=== PATIENT | female | born 1955 | race African-American/Black ===

== ENCOUNTER → 2016-10-27 | Outpatient (CLI) | payer BC ==
--- NOTE | 2016-10-27 14:56 | DIAGNOSTIC IMAGING REPORT ---
LEFT KNEE 1 OR 2 VIEWS ROUTINE CLINICAL HISTORY: L KNEE PAIN COMPARISON: None. DISCUSSION: No acute fractures are visualized. There is a linear calcific density located superior to the medial tibial spine. This is felt to be chronic. There are moderate arthritic changes present. No destructive lesions are evident. IMPRESSION: Mild degenerative change. No acute fractures are visualized. Electronically signed by: Werner Jones M.D. 10/27/2016 2:55 PM Dictated Date/Time: 10/27/2016 2:54 PM
== END | disposition home or self-care (01) ==
LOC: C.RAD1850 14:30
PROVIDERS: ATTEND Family Medicine
DX: M25.562 Pain in left knee (principal)

== ENCOUNTER → 2017-05-01 | Outpatient (CLI) | payer BC ==
--- NOTE | 2017-05-01 14:45 | MAMMOGRAPHY REPORT ---
BILATERAL DIGITAL SCREENING MAMMOGRAM TOMOSYNTHESIS WITH CAD: 05/01/2017 CLINICAL HISTORY: Routine screening. Patient has no complaints. TECHNIQUE: Breast tomosynthesis in addition to standard 2D mammography was performed. Current study was also evaluated with a Computer Aided Detection (CAD) system. COMPARISON: Comparison is made to exams dated: 04/28/2016 mammogram, 04/27/2015 mammogram, 4 mammogram, 04/23/2013 mammogram, 11/10/2009 mammogram, and 04/18/2012 mammogram - [facility]. BREAST COMPOSITION: There are scattered areas of fibroglandular density in both breasts. FINDINGS: No suspicious masses, calcifications, or areas of architectural distortion are noted in ei ther breast. There has been no significant interval change compared to prior exams. IMPRESSION: ACR BI-RADS CATEGORY 1: NEGATIVE There is no mammographic evidence of malignancy. A 1 year screening mammogram is recommended. The pa tient will receive written notification of the results. Approximately 10% of breast cancers are not detected with mammography. A negative mammographic report should not delay biopsy if a clinically suggestive mass is present. Liyah Thompson M.D. ah/:05/01/2017 12:53:31 Ophthalmic Dispenser: Tammie KIRBY(Rolf)(Doris), [facility] letter sent: Normal 1/2 BI-RADS Code: ACR BI-RADS Category 1: Negative
== END | disposition home or self-care (01) ==
LOC: C.MAMM 11:04
PROVIDERS: ATTEND Obstetrics & Gynecology
DX: Z12.31 Encounter for screening mammogram for malignant neoplasm of breast (principal)

== ENCOUNTER → 2017-09-26 | Outpatient (CLI) | payer OTHER | END | disposition home or self-care (01) | LOC: C.LABSPEC 13:28 → C.PAPS 13:30 | PROVIDERS: ATTEND Obstetrics & Gynecology | DX: Z12.4 Encounter for screening for malignant neoplasm of cervix (principal) ==

== ENCOUNTER 2024-07-16 16:41 | Inpatient (IN) ==
--- NOTE | 2024-07-16 17:21 | Emergency Department Note ---
Impression & Plan Influenza A, Hypoxia ED Provider Note Provider: Bryan Wilkins MD CHIEF COMPLAINT: Cough, shortness of breath HISTORY OF PRESENT ILLNESS: Patient is a 69-year-old female past medical history of significant asthma, sleep apnea, obesity presenting here today with ongoing cough and breathing issues. States over the last 3 weeks she has had a decent cough. Seen by her primary doctor and given some Tessalon Perles. Has been using her rescue inhaler prickly last several days 4-5 times a day with some improvement with this. has been somewhat ill but no other travel or sick contacts reported. No fevers or chills. Does endorse over the last approximately 4 days having myalgias and some increased weakness. Clear phlegm production a little bit of soreness in the chest with coughing and the other day after coughing felt a little bit dizzy but did not syncopized or fall. Denies significant sinus congestion or significant sore throat. No significant nausea vomiting or diarrhea reported. No significant abdominal pain. Maybe a little bit of chest soreness with coughing. Given the increasing symptoms and shortness of breath today came here for evaluation. PAST MEDICAL HISTORY: As noted above MEDICATIONS: Reviewed home medications SOCIAL HISTORY: Non-smoker PHYSICAL EXAM: GENERAL: alert and oriented in no acute distress on stretcher, nasal cannula in place Head: normocephalic and atraumatic EYES: No injection, discharge or icterus. NECK: Trachea midline. Supple. ENT: Mucous membranes pink and moist. LUNGS: Airway patent. No retractions. Breath sounds diminished with faint expiratory wheeze HEART: Regular rate and rhythm. No chest wall tenderness ABDOMEN: Soft and non-tender, without guarding or rebound. SKIN: Acyanotic, warm, dry, without rashes EXTREMITIES: Without swelling, tenderness or deformity NEUROLOGICAL: No focal deficits. No aphasia. No facial droop or slurred speech. EK beats per min. Normal sinus rhythm. No PVC or PAC. No acute ST segment elevation or depression with a QTc of 454. CONTINUOUS CARDIAC MONITORING: was ordered and showed a heart rate of 50s to 70s bpm in sinus bradycardia normal sinus rhythm Patient's laboratory studies and imaging reviewed. Differential includes Reactive airway disease, pneumonia, pneumothorax, COPD, CHF, infections, cardiac ischemia, pulmonary embolism, musculoskeletal, gastrointestinal, as well as other pathologies. IMPRESSION/MEDICAL DECISION MAKING: Found in triage to be hypoxic in the 80s on room air. No history of oxygen usage or smoking. COVID flu RSV testing sent. X-ray ordered and basic blood work. EKG and troponin sent given a bit of chest discomfort seems like musculoskeletal from the coughing. Lower suspicion for ACS and no STEMI noted. Given DuoNeb and some IV steroids here. No significant risk factors or travel recently and doubt she is suffering from VTE. Doubt dissection or CHF at this time. Question possible development of pneumonia versus asthma exacerbation. Blood work here without significant leuko-cytosis actually is mildly leukopenia. No anemia. No significant electrolyte abnormality signs of renal dysfunction. No transaminitis. Normal troponin. Negative COVID and RSV. Patient positive for influenza likely explaining her symptoms. Will complete a CTA of the chest given her hypoxia and x-ray questioning only some mild pulmonary congestion versus right lower lobe atelectasis to exclude underlying formal pneumonia. CTA without evidence of pneumonia or PE. Discussed with patient and . Given her hypoxia will bring in for further care and the hospitalist team was collectively. DIAGNOSIS: Hypoxia, cough, influenza A DISPOSITION: Hospitalist will evaluate Patient was agreeable with this plan. Past Med/Surg History Problem List (Updated 07/17/24 @ 00:17 by Bryan Wilkins M.D.) Hypoxia (Acute) Influenza A (Acute) Mixed incontinence Obesity Nocturnal hypoxemia Severe obstructive sleep apnea Recurrent pneumonia Chronic rhinitis Eosinophilic asthma Allergic asthma Moderate persistent asthma Elevated IgE level Bronchitis Chest heaviness Dyspnea on exertion Encounter for annual routine gynecological examination Medical History Fibroids Endometriosis Surgical History S/P colonoscopy Status post ectopic H/O breast biopsy Family History Denies family history of Ovarian cancer Prostate cancer Myocardial infarction Breast cancer Colorectal cancer Social History Smoking Status: Never smoker Preferred Language: Khmer Feels Safe at Home: Yes Allergies Allergies Allergy/AdvReac Type Severity Reaction Status Date / Time cefazolin Allergy Hives Verified 04/04/24 10:53 Fish Containing Products Allergy "seafood Verified 07/16/24 22:50 allergy" shellfish derived Allergy "seafood Verified 07/16/24 22:50 allergy" Home Meds Home Medications Medication Instructions Recorded Confirmed lansoprazole 30 mg capsule,delayed 30 mg PO DAILY 06/21/22 07/16/24 release (Prevacid) fluoxetine 10 mg capsule 10 mg PO DAILY 11/08/22 07/16/24 loratadine 10 mg tablet (Claritin) 10 mg PO DAILY PRN Allergic 11/08/22 07/16/24 Symptoms amlodipine 10 mg PO HS 12/21/22 07/16/24 Previous Rx's Medication Instructions Recorded albuterol sulfate 90 mcg/actuation 2 puff inhalation Q4H PRN 02/28/24 aerosol inhaler (Ventolin HFA) shortness of breath or wheezing #8.5 grams azelastine 137 mcg (0.1 %) nasal 2 spray intranasal BID PRN nasal 02/28/24 spray congestion #30 mL mometasone 50 mcg/actuation nasal 2 spray intranasal DAILY #17 grams 02/28/24 spray budesonide-formoterol HFA 160 2 puff inhalation BID #10.2 grams 03/05/24 mcg-4.5 mcg/actuation aerosol inhaler (Symbicort) Results & Data (ED) Vital Signs Vital Signs - 24 hr 07/16/24 17:06 07/16/24 17:07 07/16/24 17:29 Temperature 36.6 C Temperature Source Temporal Artery Scan Pulse Rate 63 Pulse Rate [Apical] Respiratory Rate 18 Respiratory Effort / Characteristics Non-Labored Spontaneous Respiratory Depth Normal Respiratory Pattern Blood Pressure 128/71 Blood Pressure [Right Arm] Blood Pressure Mean 90 Blood Pressure Mean [Right Arm] Pulse Oximetry 83 L 90 86 L Oxygen Delivery Method Room Air Nasal Cannula Nasal Cannula Oxygen Flow Rate 5 0 Sepsis Recent Fever Within 48 Hours No Sepsis New/Unexplained Change in Mental Status N/A Sepsis Action Taken by Nursing No Action Required Oxygen Flow Rate - Titration 4 Pulse Oximetry Post Tiitration 96 07/16/24 17:34 07/16/24 18:00 07/16/24 18:24 Temperature Temperature Source Pulse Rate 60 Pulse Rate [Apical] 66 57 L Respiratory Rate 20 18 Respiratory Effort / Characteristics Non-Labored Spontaneous Non-Labored Spontaneous Respiratory Depth Normal Respiratory Pattern Regular Blood Pressure Blood Pressure [Right Arm] 153/74 H Blood Pressure Mean Blood Pressure Mean [Right Arm] 100 Pulse Oximetry 100 98 Oxygen Delivery Method Nebulizer Nasal Cannula Oxygen Flow Rate 3 Sepsis Recent Fever Within 48 Hours Sepsis New/Unexplained Change in Mental Status Sepsis Action Taken by Nursing Oxygen Flow Rate - Titration Pulse Oximetry Post Tiitration 07/16/24 20:00 Temperature Temperature Source Pulse Rate Pulse Rate [Apical] 74 Respiratory Rate 20 Respiratory Effort / Characteristics Non-Labored Spontaneous Respiratory Depth Normal Respiratory Pattern Regular Blood Pressure Blood Pressure [Right Arm] 158/68 H Blood Pressure Mean Blood Pressure Mean [Right Arm] 98 Pulse Oximetry 94 Oxygen Delivery Method Nasal Cannula Oxygen Flow Rate 3 Sepsis Recent Fever Within 48 Hours Sepsis New/Unexplained Change in Mental Status Sepsis Action Taken by Nursing Oxygen Flow Rate - Titration Pulse Oximetry Post Tiitration Laboratory Data 07/16/24 17:33 07/16/24 17:33 Lab Results 07/16/24 07/16/24 07/16/24 Range/Units 17:00 17:33 17:39 WBC 3.42 L (4.8-10.8) K/ul RBC 4.50 (4.20-5.40) M/uL Hgb 12.9 (12.0-16.0) g/dl POC Hgb 13.6 (12.0-16.0) g/dl Hct 39.8 (37.0-47.0) % POC Hct 40 (37-47) % MCV 88.4 (80.0-100.0) fL MCH 28.7 (25.0-34.0) pg MCHC 32.4 (32.0-36.0) g/dL RDW Std Deviation 44.4 (36.4-46.3) fL RDW Coeff of Isaias 13.7 (11.5-14.5) % Plt Count 165 (130-400) K/uL MPV 10.7 (9.4-12.4) fL Immature Gran % (Auto) 0.6 % Neut % (Auto) 56.7 % Lymph % (Auto) 27.8 % [place] % (Auto) 9.9 % Eos % (Auto) 4.7 % Baso % (Auto) 0.3 % Neut # (Auto) 1.94 (1.40-6.50) K/uL Lymph # (Auto) 0.95 L (1.20-3.40) K/uL [place] # (Auto) 0.34 (0.11-0.59) K/uL Eos # (Auto) 0.16 (0.00-0.50) K/uL Baso # (Auto) 0.01 (0.00-0.20) K/uL Immature Gran # (Auto) 0.02 (0.01-0.20) K/uL PT 10.9 (9.0-12.0) Seconds INR 1.0 (0.9-1.1) APTT 28 (21-31) Seconds PTT Ratio 1.0 POC Sodium 140 (135-144) mmol/L Sodium 140 (136-145) mmol/L POC Potassium 3.7 (3.3-5.0) mmol/L Potassium 3.7 (3.5-5.1) mmol/L POC Chloride 99 L (101-112) mmol/L Chloride 101 (98-107) mmol/L Carbon Dioxide 33 H (21-32) mmol/L POC Total CO2 29 (24-31) mmol/L Anion Gap 6 (3-11) POC Anion Gap 16.0 (16-25) mmol/L POC BUN 11 (7-18) mg/dl BUN 12 (6-23) mg/dl Creatinine 0.92 (0.6-1.2) mg/dl POC Creatinine 1.0 (0.6-1.3) mg/dl Est Cr Clr Drug Dosing 64.4 ml/min eGFR 67.82 BUN/Creatinine Ratio 13.0 (10-20) Glucose 91 (70-99(Fasting)) mg/dl POC Glucose (other) 94 (70-99) mg/dl Calcium 9.1 (8.6-10.3) mg/dl POC Ioniz Calcium Hilario 1.18 (1.12-1.32) mmol/l Total Bilirubin 0.3 (0.2-1.0) mg/dl AST 20 (13-39) U/L ALT 15 (7-52) U/L Alkaline Phosphatase 85 (34-104) U/L Troponin I High Sens 13.0 (0-14) pg/ml Total Protein 7.6 (6.0-8.3) gm/dl Albumin 4.3 (3.4-5.0) gm/dl Globulin 3.3 (2.5-4.0) gm/dl Albumin/Globulin Ratio 1.3 (0.9-2) SARS-CoV-2 (PCR) NEGATIVE (Negative) Influenza Type A (PCR) Positive A (Neg) Influenza Type B (PCR) Negative (Neg) RSV (RT-PCR) Negative (Neg) Administered Medications Discontinued Medications Albuterol (Albut/Ipratrop 3mg/0.5mg Neb 3 Ml Vial) 12 ml NEB ONE ONE; Protocol Stop: 07/16/24 17:29 Last Admin: 07/16/24 18:20 Dose: 12 ml Documented By: CAMILO Ioversol (Optiray 320 125ml) 64 ml IV ONCE ONE Stop: 07/16/24 19:22 Last Admin: 07/16/24 19:23 Dose: 64 ml Documented By: SADIQ Methylprednisolone (Methylprednisolone 125 Mg/2 Ml Vial) 60 mg IV NOW STA Stop: 07/16/24 17:29 Last Admin: 07/16/24 18:38 Dose: 60 mg Documented By: SHAKILA Oseltamivir Phosphate (Oseltamivir Phosphate 75 Mg Cap) 75 mg PO NOW STA; Protocol Stop: 07/16/24 19:30 Last Admin: 07/16/24 19:40 Dose: 75 mg Documented By: SHAKILA Imaging Data Radiologist's Impression: Chest X-Ray 07/16/24 17:11 INDICATION: Chest pain. TECHNIQUE: Frontal radiograph of the chest. COMPARISON: Radiograph from 11/18/2022. FINDINGS: Cardiomegaly. Mild pulmonary vascular congestion. Subsegmental atelectasis/airspace disease in the right lower lobe. No pleural effusion or pneumothorax. No acute osseous abnormality evident. IMPRESSION: Mild pulmonary vascular congestion. Subsegmental atelectasis/airspace disease in the right lower lobe. Electronically signed by Branden Hightower 07-16-2024 5:51 PM Chest CTA 07/16/24 17:59 CT pulmonary angiogram with IV contrast History: Cough. Hypoxia COMPARISON: November 21, 2022 TECHNIQUE: CT angiography of the chest was performed without IV contrast followed by IV contrast, including 3D post processing CTA image reconstruction. Dose reduction techniques were achieved by using automatic exposure control and/or adjustment of mA and/or kV according to patient size and/or use of iterative reconstruction technique. FINDINGS: Diagnostic quality: Adequate There is no evidence for pulmonary embolism. The heart is not enlarged. There is no pericardial effusion. There are no abnormally enlarged hilar or mediastinal lymph nodes. Moderate bronchial thickening and scattered endobronchial mucous plugging throughout the lower lobes, as well as the lingula. Mild, streaky, postobstructive atelectasis at the periphery of the lung bases and lingula. No consolidation. There is no pleural effusion. Limited visualized upper abdomen. No destructive osseous changes are seen. IMPRESSION: No evidence for pulmonary embolism. Findings of bronchitis in the lung bases and lingula, as above. Electronically signed by Alessandro Delarosa 07-16-2024 7:45 PM Discharge Plan Visit Data Chief Complaint: Cough Stated Complaint: COUGH, SOB, WHEEZING, ED Provider: Bryan Wilkins Discharge Problem: Influenza A, Hypoxia Patient Disposition: Admitted As Inpatient Discharge Instructions Interventions: ED Discharge Assessment Last Done: 07/16/24 22:45
[2024-07-16 17:52] LABS: iSTAT Hemoglobin 13.6 g/dl (12.0-16.0); iSTAT Ionized Calcium 1.18 mmol/l (1.12-1.32); iSTAT Potassium 3.7 mmol/L (3.3-5.0)
--- NOTE | 2024-07-16 17:52 | XRay Report ---
INDICATION: Chest pain. TECHNIQUE: Frontal radiograph of the chest. COMPARISON: Radiograph from 11/18/2022. FINDINGS: Cardiomegaly. Mild pulmonary vascular congestion. Subsegmental atelectasis/airspace disease in the right lower lobe. No pleural effusion or pneumothorax. No acute osseous abnormality evident. IMPRESSION: Mild pulmonary vascular congestion. Subsegmental atelectasis/airspace disease in the right lower lobe. Electronically signed by Branden Hightower 07-16-2024 5:51 PM
[2024-07-16 17:59] LABS: Basophils # (auto) 0.01 K/uL (0.00-0.20); Basophils % (auto) 0.3 %; Eosinophils # (auto) 0.16 K/uL (0.00-0.50); Eosinophils % (auto) 4.7 %; Hematocrit (blood only) 39.8 % (37.0-47.0); Hemoglobin 12.9 g/dl (12.0-16.0); Immature Granulocytes # (auto) 0.02 K/uL (0.01-0.20); Immature Granulocytes % (auto) 0.6 %; Lymphocytes # (auto) 0.95 K/uL (1.20-3.40); Lymphocytes % (auto) 27.8 %; Mean Corpuscular Hemoglobin 28.7 pg (25.0-34.0); Mean Corpuscular Hgb Conc 32.4 g/dL (32.0-36.0); Mean Corpuscular Volume 88.4 fL (80.0-100.0); Mean Platelet Volume 10.7 fL (9.4-12.4); Monocytes # (auto) 0.34 K/uL (0.11-0.59); Monocytes % (auto) 9.9 %; Neutrophils # (auto) 1.94 K/uL (1.40-6.50); Neutrophils % (auto) 56.7 %; Platelet Count 165 K/uL (130-400); RDW Coefficient of Variation 13.7 % (11.5-14.5); RDW Standard Deviation 44.4 fL (36.4-46.3); White Blood Count 3.42 K/ul (4.8-10.8)
[2024-07-16 18:00] LABS: Influenza A virus by PCR Positive (Neg); Influenza B virus by PCR Negative (Neg); RSV by PCR Negative (Neg); SARS CoV2 RNA(COVID-19) Ceph NEGATIVE (Negative)
[2024-07-16 18:10] LABS: Albumin Globulin Ratio 1.3 (0.9-2); Albumin Level 4.3 gm/dl (3.4-5.0); Bilirubin,Total 0.3 mg/dl (0.2-1.0); Calcium 9.1 mg/dl (8.6-10.3); Creatinine Clr Calc Pharmacy 64.4 ml/min; Globulin 3.3 gm/dl (2.5-4.0); Potassium 3.7 mmol/L (3.5-5.1); Total Protein 7.6 gm/dl (6.0-8.3)
[2024-07-16] MEDS: ALBUT/IPRATROP 3MG/0.5MG NEB 3 ML VIAL NEB ONE (18:20)
[2024-07-16 18:21] LABS: Partial Thromboplastin Time 28 Seconds (21-31); Prothrombin Time 10.9 Seconds (9.0-12.0)
[2024-07-16] MEDS: methylPREDNISolone 125 MG/2 ML VIAL IV STA (18:38)
[2024-07-16] MEDS: OPTIRAY 320 125ml IV ONE (19:23)
[2024-07-16] MEDS: OSELTAMIVIR PHOSPHATE 75 MG CAP PO STA (19:40)
--- NOTE | 2024-07-16 19:46 | CT Scan Report ---
CT pulmonary angiogram with IV contrast History: Cough. Hypoxia COMPARISON: November 21, 2022 TECHNIQUE: CT angiography of the chest was performed without IV contrast followed by IV contrast, including 3D post processing CTA image reconstruction. Dose reduction techniques were achieved by using automatic exposure control and/or adjustment of mA and/or kV according to patient size and/or use of iterative reconstruction technique. FINDINGS: Diagnostic quality: Adequate There is no evidence for pulmonary embolism. The heart is not enlarged. There is no pericardial effusion. There are no abnormally enlarged hilar or mediastinal lymph nodes. Moderate bronchial thickening and scattered endobronchial mucous plugging throughout the lower lobes, as well as the lingula. Mild, streaky, postobstructive atelectasis at the periphery of the lung bases and lingula. No consolidation. There is no pleural effusion. Limited visualized upper abdomen. No destructive osseous changes are seen. IMPRESSION: No evidence for pulmonary embolism. Findings of bronchitis in the lung bases and lingula, as above. Electronically signed by Alessandro Delarosa 07-16-2024 7:45 PM
--- NOTE | 2024-07-16 19:48 | History & Physical Report ---
Date of Service July 16, 2024 Assessment & Plan (1) Moderate persistent asthma: (2) Dyspnea on exertion: (3) Influenza A: Plan Patient is a 69-year-old with PMH notable for asthma, EMILY, obesity who is here with 3 weeks of cough + 4 days of acute worsening. She received abx from her PCP, and reports some improvement. She has been requiring use of her rescue inhaler 4-5x per day whereas she normally never needs it. The past 4 days involved worsening cough, myalgias, headaches, and chest pain a/w cough; no fevers, chills, GI distress. 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 Patient is being admitted for management of asthma exacerbation in the setting of flu infection. #Asthma/Flu - 3 weeks of cough, completed Z-pac given by primary doctor w some improvement. 4 days of acute worsening with additional flu-like sx. O2 desat noted at home. [facility] +ve for influenza A. On arrival, required O2 supplementation via 5L NC; now down to 2L. Has remained afebrile. Labs unremarkable w no leukocytosis. CXR with mild vascular congestion, subsegmental atelectasis/airspace disease in RLL. Chest CTA with no evidence of PE. - s/p 60mg solu-medrol, 1 albuterol neb, 1 dose tamiflu - Continue O2 supplementation, wean as tolerated to maintain SpO2 > 88% - Continue home Symbicort - Mucinex for congestion - Duonebs q4h, prn albuterol q4h - Solu-medrol 40mg TID Chronic, stable conditions: home medications continued Diet: regular Code: Full Dispo: admit to med/surg History of Present Illness Chief Complaint: Flu A Primary Care Provider: Mehul Ceron MD Patient with h/o asthma has had a cough for ~3 weeks with recent worsening. Reports that she did see her primary doctor within that time and was given a Z- pac and Tessalon Perles. She feels that only the former helped. She had no recent travel. Her only sick contact would be her , who had a mild cough since early May. For the past approx 4 days (since ), she noticed the cough was "deeper." Minimal sputum produced, always clear. She started needing her rescue inhaler 4- 5 times a day vs typically never using it. She also started to have myalgias, g eneralized weakness, ROUSE, dizziness w/o syncope or fall, and mild chest pain/soreness with excessive coughing. No fevers, chills, rhinorrhea, sinus congestion, ear pain, sore throat. No significant abd pain, nausea, vomiting, or diarrhea reported. In the ED, she was given albuterol, 60mg solu-medrol, and 1 dose of tamiflu. She was requiring supplemental O2, down to 2L by admission. Allergies Allergy/AdvReac Type Severity Reaction Status Date / Time cefazolin Allergy Hives Verified 04/04/24 10:53 Fish Containing Products Allergy "seafood Verified 07/16/24 22:50 allergy" shellfish derived Allergy "seafood Verified 07/16/24 22:50 allergy" Home Medications Medication Instructions Recorded Confirmed Type lansoprazole 30 mg capsule,delayed 30 mg PO DAILY 06/21/22 07/16/24 History release (Prevacid) fluoxetine 10 mg capsule 10 mg PO DAILY 11/08/22 07/16/24 History loratadine 10 mg tablet (Claritin) 10 mg PO DAILY PRN Allergic 11/08/22 07/16/24 History Symptoms amlodipine 10 mg PO HS 12/21/22 07/16/24 History albuterol sulfate 90 mcg/actuation 2 puff inhalation Q4H PRN 02/28/24 07/16/24 Rx aerosol inhaler (Ventolin HFA) shortness of breath or wheezing #8.5 grams azelastine 137 mcg (0.1 %) nasal 2 spray intranasal BID PRN nasal 02/28/24 07/16/24 Rx spray congestion #30 mL mometasone 50 mcg/actuation nasal 2 spray intranasal DAILY #17 grams 02/28/24 07/16/24 Rx spray budesonide-formoterol HFA 160 2 puff inhalation BID #10.2 grams 03/05/24 07/16/24 Rx mcg-4.5 mcg/actuation aerosol inhaler (Symbicort) Past Med/Surg History Problem List (Updated 07/16/24 @ 21:19 by Louis Ross MD) Influenza A Mixed incontinence Obesity Nocturnal hypoxemia Severe obstructive sleep apnea Recurrent pneumonia Chronic rhinitis Eosinophilic asthma Allergic asthma Moderate persistent asthma Elevated IgE level Bronchitis Chest heaviness Dyspnea on exertion Encounter for annual routine gynecological examination Medical History Fibroids Endometriosis Surgical History S/P colonoscopy Status post ectopic H/O breast biopsy Family History (Reviewed 04/04/24 @ 11: by Sinan Wray MD) Denies family history of Ovarian cancer Prostate cancer Myocardial infarction Breast cancer Colorectal cancer Social History Smoking Status: Never smoker Preferred Language: Luxembourger Feels Safe at Home: Yes Review of Systems Constitutional: + body aches; no fever, no chills and no sweats Eyes: no eye pain Ear, Nose, Mouth, Throat: + dizziness; no ear pain, no nasal disch arge, no facial pain, no sinus pain/pressure and no sore throat Respiratory: + cough; no hemoptysis and no wheezing Cardiovascular: + dyspnea on exertion and + lightheadedn ess; no syncope Gastrointestinal: no abdominal pain, no nausea, no vomiting, no change in stools and no diarrhea/loose stools Genitourinary: no dysuria and no urinary frequency Neurologic: + dizziness and + headache(s) Physical Exam Physical Exam: Gen: NAD, WD/WN, conversing comfortably HEENT: NCAT, PERRL, MMM, trachea midline, no LAD CV: RRR, no m/r/g, S1/S2 normal Resp: CTAB, no wheeze, decent air movement, symmetrical chest rise, hacking cough provoked w deep inspiration Abd: Soft, NT/ND, +BS MSK: No gross deformities on inspection Skin: Warm, dry, no rashes or lesions Neuro: AOx3, CN II-XII grossly intact, moves all limbs spontaneously Psych: Mood-affect congruent. Speech pace and content normal. Good insight and judgement. Results & Data Results & Data Vital Signs (Past 12 Hours) Vital Signs Temp Pulse Pulse Resp BP BP Pulse Ox 07/16/24 18:24 57 L 18 98 07/16/24 18:00 66 20 153/74 H 100 07/16/24 17:34 60 07/16/24 17:29 86 L 07/16/24 17:07 90 07/16/24 17:06 36.6 C 63 18 128/71 83 L O2 Del Method O2 Flow Rate 07/16/24 18:24 Nasal Cannula 3 07/16/24 18:00 Nebulizer 07/16/24 17:34 07/16/24 17:29 Nasal Cannula 0 07/16/24 17:07 Nasal Cannula 5 07/16/24 17:06 Room Air Supervising Physician Co-Signing Physician Notes Patient seen and examined, chart reviewed, case discussed with Dr. Ross and I agree with the assessment and plan as above. In brief, patient is a 69yo female with well controlled asthma - reports rarely using her rescue inhaler. Patient presenting with 3 weeks of cough with 4 days acutely worsening along with myalgias, ROUSE and dizziness. Patient hypoxic at home to 86% on room air. On exam patient had just returned from the bathroom - no obvious dyspnea but saturating 82% on room air. O2 replaced with improvement in saturation to 96% Skin - no rash HEENT - MMM, Neck supple Heart - +S1/S2, regular, no m/r/g Lungs - diminished air entry with scattered end-expiratory wheezing, cough on de ep inspiration Abd - soft, NT/ND Ext - warm, well perfused, no edema Labs and images reviewed. Assessment/Plan Influenza + acute exacerbation of asthma -Admit to medical -Patient is out of the window for Tamiflu - will continue supportive care -Continue home inhalers, Duonebs q4 hrs with Albuterol PRN -Mucinex, Flutter alve -Solumedrol 40mg IV TID -Remainder as above Resident Activity Tracking Resident Involvement: Resident Care Provided Care Provided: Adult Hospital Medicine
[2024-07-16] MEDS ORDERED: ALBUTEROL HFA 8 GM INHALER INH PRN (22:44)
[2024-07-16] MEDS ORDERED: LORATADINE 10 MG TAB PO PRN (22:44)
[2024-07-16] MEDS ORDERED: AZELASTINE HCL 0.1% NASAL 200 SPRAYS/27,400 MCG BTL PRN (22:44)
[2024-07-16] MEDS ORDERED: ONDANSETRON INJ 2 MG/ML 2 ML VIAL IV PRN (22:58)
--- NOTE | 2024-07-16 22:59 | Billing Data ---
Date of Service July 16, 2024 Coding Level of Care Code 97577 INT INP/OBS CARE
[2024-07-17] MEDS: amLODIPine BESYLATE 5 MG TAB PO SCH (00:34)
[2024-07-17] MEDS: guaiFENesin 600 MG TABCR PO SCH (00:34)
[2024-07-17] MEDS: methylPREDNISolone 125 MG/2 ML VIAL IV STA (00:35)
[2024-07-17] MEDS: ALBUT/IPRATROP 3MG/0.5MG NEB 3 ML VIAL NEB SCH (00:35)
--- OUTSIDE RECORDS SUMMARY | 2024-07-17 05:04 | External Medical Summary | Continuity of Care Document ---
Author Name Unknown Organization [address] [id number] Care Team Providers Care Housing Officer Name Role Phone Mehul Ceron Primary Care Physician [phone] [id number] Date(s): 06/20/24 - 06/20/[address] [address] [phone] Encounter Diagnosis ASTHMA(Discharge Diagnosis) - 06/20/24 Pneumonia(Discharge Diagnosis) - 06/20/24 Discharge Disposition: Home or Self Care Attending Physician: MD Ceron Juan Referring Physician: MD Ceron Juan Allergies, Adverse Reactions, Alerts Substance Criticality Severity Reaction Reaction Severity Status Singulair rash Active Cefzil diarrhea Active Augmentin hives Active Assessment and Plan Extracted from: Title:Office Visit Note Author:Roxann Avalos Date: 06/20/24 1.ASTHMA Status: chronic, stable Data: years since last asthma attack Goal: stable Plan: continue rescue inhaler as needed 2.Pneumonia status: acute data: EMR goal: resolution plan: complete Z delta as prescribed, tessalon perlesand rescue inhalerPRN call if symptoms worsen or new symptoms develop Extracted from: Title:Office Visit Note Author:MD Ceron Juan Jame e:06/20/24 1.ASTHMA cont albuterol prn 2.Pneumonia acute and new.Rx z-delta and benzonatate 200mg TID prn BTO prn Immunizations Given and Recorded Vaccine Date Status Refusal Reason zoster vaccine, inactivated 03/06/24 Recorded zoster vaccine, inactivated 08/31/23 Recorded pneumococcal 20-valent conjugate vaccine 02/28/24 Recorded pneumococcal 20-valent conjugate vaccine 06/01/23 Given influenza virus vaccine, inactivated 02/28/24 Osvaldo rded influenza virus vaccine, inactivated 06/01/23 Give n influenza virus vaccine, inactivated 05/18/22 Give n influenza virus vaccine, inactivated 05/17/21 Give n influenza virus vaccine, inactivated 03/15/18 Give n influenza virus vaccine, inactivated 03/07/16 Give n influenza virus vaccine, inactivated 04/30/13 Osvaldo rded tetanus/diphtheria/pertuss, acel (Tdap) 06/01/23 G iven tetanus/diphtheria/pertuss, acel (Tdap) 03/13/12 G iven SARS-CoV-2 mRNA ([id number]) 10/20/21 Re corded pneumococcal 23-valent vaccine 05/17/21 Given pneumococcal 23-valent vaccine 03/13/12 Given SARS-CoV-2 (COVID-19) mRNA BNT-162b2 vax 1 10/22/20 Recorded SARS-CoV-2 (COVID-19) mRNA BNT-162b2 vax 2 10/01/20 Recorded pneumococcal 13-valent vaccine 01/09/15 Given influenza virus vaccine, H1N1 03/13/12 Given 1Result Comment: 2021-05-17: Historical information-source unspecified 2Result Comment: 2021-05-17: Historical information-source unspecified Medications amLODIPine 10 mg oral tablet Start: 08/31/23 12:17:00 PM EDT, 1 tab, PO, Daily, Disp# 90 tab, Refills: 4, Pharmacy: [facility] Start Date: 08/31/23 Stop Date: 11/23/24 Status: Ordered Astelin 137 mcg/inh nasal spray Start: 04/19/23 9:41:00 AM EST, 1 spray, each nostril, bid, Disp# 3 each, Refills: 3, PRN: as neededfor allergy symptoms, Pharmacy: [facility] Start Date: 04/19/23 Stop Date: 08/17/23 Status: Ordered Claritin 10 mg oral tablet Start: 08/31/23 12:17:00 PM EDT, 10 mg =, PO, Daily, Disp# 90 tab, Refills: 4, Pharmacy: [id number] Start Date: 08/31/23 Status: Ordered FLUoxetine 10 mg oral capsule Start: 08/31/23 12:17:00 PM EDT, 1 cap, PO, Daily, Disp# 90 cap, Refills: 4, Pharmacy: [facility] Start Date: 08/31/23 Status: Ordered Nasonex 50 mcg/inh nasal spray Start: 03/25/22 5:06:00 PM EDT, 2 spray, intranasal, bid, Disp# 3 each, Refills: 3, Pharmacy: [facility] Start Date: 03/25/22 Status: Ordered Prevacid 30 mg oral delayed release capsule Start: 08/31/23 12:17:00 PM EDT, 1 cap, PO, Daily, Disp# 90 cap, Refills: 4, Pharmacy: [facility] Start Date: 08/31/23 Status: Ordered Symbicort Start: 06/01/23 9:27:00 AM EST Start Date: 06/01/23 Status: Ordered Tessalon 200 mg oral capsule Start: 06/20/24 10:52:00 AM EST, 1 cap, PO, tid, Disp# 60 cap, Refills: 0, PRN: cough and congestion,Pharmacy: [facility] Start Date: 06/20/24 Status: Ordered Zithromax Z-Delta 250 mg oral tablet Start: 06/20/24 10:51:00 AM EST, See Comments, PO, Daily, Disp# 6 tab, Refills: 0, 500 mg (2 tabs) onday 1, then 250 mg (1 tab) on days 2-5, Pharmacy: [facility] Start Date: 06/20/24 Status: Ordered Mental Status 06/20/24 Barriers to Learning one year None evide nt Mandatory Health Literacy Documentation Yes Health Literacy Communication Barriers N ever Primary Language Wolof Problem List Condition Confirmation Course Effective Dates Status H ealth Status Informant Allergic rhinitis Confirmed Active Anxiety Confirmed Active ASTHMA Confirmed Active GERD Confirmed Active Hyperlipidemia Confirmed Active HTN (hypertension) Confirmed Active Impaired fasting glycaemia Confirmed Active Leukopenia Confirmed Active Mood swing Confirmed Active Obesity Confirmed Active Sleep apnea 1 Confirmed Active Weight disorder Confirmed Active 1severe EMILY with noctural hypoxia. sees Dr. 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 2 09/07/22 Com pleted Mammogram 3 05/31/22 Completed Femoral neck DEXA scan Z score 4 08/13/21 Completed Colonoscopy 5, 6, 7 07/07/21 Compl eted Mammogram - screening 8 05/21/21 C ompleted Mammogram - screening 9 05/19/20 C ompleted Mammogram - screening 10 05/14/19 Completed Mammogram - screening 11 05/01/17 Completed Knee X-ray Left 12 10/27/16 Comple heather Mammogram - screening 13 04/28/16 Completed Cervical cytology finding 14 04/11/16 Completed Mammogram 15 04/27/15 Completed Mammogram 04/24/14 Completed Biopsy of uterus 16 05/17/13 Compl eted Colonoscopy 17 03/15/09 Completed Breast biopsy sample 18 C ompleted Laparoscopy 19, 20 Comple heather PAP test date 21 Complete d right ovary removal 22 Co mpleted 1IMPRESSION: Severe obstructive sleep apnea / nocturnal hypoxemia corrected with CPAP 13 centimeterswater pressure oxygen 2 liters/minute. The patient did using medium F&P Eson mask as her interface. 2findings are consistent with severe obstructive sleep apnea 3There is no mammographic evidence of malignancy. 4T-score of -1.6. 10 year probability of fracture: Major osteoporotic 3.7% Hip 0.4% Population [place] ([place]) Based DualFemur (Left) Neck BMD 5COLO to cecum, 2 mm rectal polyp CF, diverticulosis. 6Repeat in 10 years. 7Pathology report: hyperplastic polyps 8There is no mammographic evidence of malignancy. A 1 year screening mammogram is recommended. The patient will receive written notification of the results. 9There is no mammographic evidence of malignancy. A 1 year screening mammogram is recommended. 10Impression: There is no mammographic evidence of malignancy. A 1 year screening mammogram is recommendedc. (05/14/2020). The patient will receive written notification of the results. 11There is no mammographic evidence of malignancy. A 1 year screening mammogram is recommended. The patient will receive written notification of the results. 12Impression: Mild deenerative change. No acute fractures are visualized. 13Impression: There is no mammographic evidence of malignancy. A 1 year screening mammogram is recommended. The patietn will receive written notification of the rsults. 14Negative for intraepithelial lesion or malignancy. 15Normal 16normal 17normal 18benign 19for ectopic 20for endometriosis 21Negative for malignancy 22due to tubal Vital Signs Most recent to oldest [Reference Range]: 1 Height 158 cm (06/20/24 9:58 AM) Patient Weight 108.8 kg (06/20/24 9:58 AM) Body Mass Index 43.58 kg/m2 (06/20/24 9:58 AM) Temperature [36.5-37.9 DegC] 37.1 DegC (06/20/24 9:58 AM) Heart Rate 60 bpm (06/20/24 9:58 AM) Respiratory Rate 18 br/min (06/20/24 9:58 AM) Blood Pressure 139/76mmHg (06/20/24 9:58 AM) Cuff Pulse Pressure 63 mmHg (06/20/24 9:58 AM) Social History Social History Type Response Smoking Status Never smoked cigaret mare Sex Female Sex Representation Female (finding) FCM Outpt Note * MD Ceron Juan: MODIFY MD Ceron Juan: MODIFY Event Display: FCM Outpt Note Authored Date: "This note was written by a medical student. Preliminary report status should be regarded as NOT reviewed by an attending physician. Finalized report status indicates that the attending has reviewed the note and agrees with the plan." Chief Complaint Productive cough for approximately 10 days. Denies fever. Recently started wheezing and SOB with exertion History of Present Illness Tahmina is a69 yo F presenting with cough for days. describes the cough as deep and productive of clear mucus with sometimes a yellowish color. no fever, aches, or fatigue. no chest pain with orwithoutcough. no sore throat or runny nose. no headache. pt reported shortness of breath at rest and with activity, but not interfering with ADLs. Has used her rescue inhaler 2x dailyfor the duration of the cough which she rarely has to use for history of asthma. been years since an asthma attack. had been sick with a cough with sore throat right before patient started her cough. 's symptoms fully resolved. has been using OTC cold prep daily since onset of cough but doesn't seem to be doing much. did get covidand flu shot this year. Review of Systems as per hpi Physical Exam Vitals & Measurements T:37.1C HR:60(Monitored) RR:18 BP:139/76 SpO2:94% HT:158cm WT:108.800kg(Dosing) WT:108.8kg BMI:43.58 PHQ2 Data(Data Documented on:06/20/2024 09:58) Emotional health assessment NEGATIVE General appearance:in no acute distress, well appearing HEENT:no scleral icterus, no conjuctival injection,EOM intact, no throat erythema, mild post nasal drip, no sinus tenderness Neck:neck supple, no JVD, no lymphadenopathy CV:regular rate and rhythm, no extra heart sounds, no murmurs, normal capillary refill, no pitting edema, no carotid bruits Pulm: non-labored breathing, inspiratory and expiratory wheezing lower left lung field ABD:bowel sounds present, abdomen soft and non-distended, no guarding or rebound tenderness, no hepatosplenomegaly Assessment/Plan 1.ASTHMA Status: chronic, stable Data: years since last asthma attack Goal: stable Plan: continue rescue inhaler as needed 2.Pneumonia status: acute data: EMR goal: resolution plan: complete Z delta as prescribed, tessalon perlesand rescue inhalerPRN call if symptoms worsen or new symptoms develop Attestation MSIV note reviewed. Please see my individual and complete note of the same date for documentationof the patient visit. Problem List/Past Medical History Ongoing Allergic rhinitis Anxiety ASTHMA GERD HTN (hypertension) Hyperlipidemia Impaired fasting glycaemia Leukopenia Mood swing Obesity Sleep apnea Weight disorder Resolved Colonoscopy Procedure/Surgical History Polysomnography| Service Date: 12/26/2022SLP STDY UNATTENDED| Service Date: 09/07/2022Mammogram| Service Date: 05/31/2022Femoral neck DEXA scan Z score| Service Date: 2Colonoscopy| Service Date: 07/07/2021Mammogram - screening| Service Date: 05/21/2021Mammogram - screening| Service Date: 05/19/2020Mammogram - screening| Service Date: 05/14/2019Mammogram - screening| Service Date: 05/01/2017Knee X-ray Left| Service Date: 10/27/2016Mammogram - screening| Service Date: 04/28/2016Cervical cytology finding| Service Date: 04/11/2016Mammogram| Service Date: 04/27/2015Mammogram| Service Date: 04/24/2014iopsy of uterus| Service Date: 05/17/2013Colonoscopy| Service Date: 03/15/2009right ovary removalBreast biopsy sampleLaparoscopyPAP test date Medications amLODIPine(amLODIPine 10 mg oral tablet), 10 mg= 1 tab, PO, Daily, 4 refills azelastine nasal(Astelin 137 mcg/inh nasal spray), 1 spray, each nostril, bid, PRN, 3 refills azithromycin(Zithromax Z-Delta 250 mg oral tablet), See Comments, PO, Daily benzonatate(Tessalon 200 mg oral capsule), 200 mg= 1 cap, PO, tid, PRN budesonide-formoterol(Symbicort) FLUoxetine(FLUoxetine 10 mg oral capsule), 10 mg= 1 cap, PO, Daily, 4 refills lansoprazole(Prevacid 30 mg oral delayed release capsule), 30 mg= 1 cap, PO, Daily, 4 refills loratadine(Claritin 10 mg oral tablet), 10 mg, PO, Daily, 4 refills mometasone nasal(Nasonex 50 mcg/inh nasal spray), 2 spray, intranasal, bid, 3 refills Allergies Augmentinhives Cefzildiarrhea Singulairrash Social History Smoking Status Never smoked cigarettes Alcohol - Low Risk Exercise - Regular exercise Exercise type:Walking - Comments: biking Tobacco - Denies Tobacco Use Family History Asthma: Father and PGM. Diabetes: Mother. Heart failure: Father. Health Status Family Member(s) Immunizations Vaccine Date Status zoster vaccine, inactivated 03/06/2024 Recorded pneumococcal 20-valent conjugate vaccine 02/28/2024 Recorded influenza virus vaccine, inactivated 02/28/2024 Recorded zoster vaccine, inactivated 08/31/2023 Recorded tetanus/diphtheria/pertuss, acel (Tdap) 06/01/2023 Given pneumococcal 20-valent conjugate vaccine 06/01/2023 Given influenza virus vaccine, inactivated 06/01/2023 Given influenza virus vaccine, inactivated 05/18/2022 Given SARS-CoV-2 mRNA (ozodctrpeyc-kdkz-ucs) 10/20/2021 Recorded influenza virus vaccine, inactivated 05/17/2021 Given pneumococcal 23-valent vaccine 05/17/2021 Given SARS-CoV-2 (COVID-19) mRNA BNT-162b2 vax 10/22/2020 Recorded Comments : 2021-05-17: Historical information-source unspecified SARS-CoV-2 (COVID-19) mRNA BNT-162b2 vax 10/01/2020 Recorded Comments : 2021-05-17: Historical information-source unspecified influenza virus vaccine, inactivated 03/15/2018 Given influenza virus vaccine, inactivated 03/07/2016 Given pneumococcal 13-valent vaccine 01/09/2015 Given influenza virus vaccine, inactivated 04/30/2013 Recorded influenza virus vaccine, H1N1 03/13/2012 Given pneumococcal 23-valent vaccine 03/13/2012 Given tetanus/diphtheria/pertuss, acel (Tdap) 03/13/2012 Given Recommendations Health Maintenance Pending(in the next year) OverDue Medicare Annual Wellness Visit due05/18/23and every 1year Due Adult COVID-19 Vaccination due06/20/24Unknown Frequency Adult Social Determinants of Health Screening due06/20/24Unknown Frequency Hepatitis C Screening due06/20/24One-time only Due In Future Adult Influenza Vaccine not due until12/10/24and every 1year Breast Cancer Screening not due until06/01/25and every 731day Satisfied(in the past 1 year) Satisfied Adult Influenza Vaccine on02/28/24.Satisfied by SOLO Montano, Monika Body Mass Index on06/20/24.Satisfied by SOLO Shipley, Nita Lipid Screening on03/27/24.Satisfied by Contributor_system, [id number] Shingles Vaccine on08/31/23.Satisfied by EVELIA Collazo, Megha Electronic Signature on File Electronically Reviewed/Signed by: Roxann Avalos Author Signature Dt/Tm:06/20/2024 11:01 AM Medical Student Electronically Reviewed/Signed by: Mehul Ceron MD Cosigner Signature Dt/Tm: 06/20/2024 03:38 PM Department of Family Medicine RR * MD Ceron Juan: PERFORM Event Display: FCM Outpt Note Authored Date: [id number] Chief Complaint Productive cough for approximately 10 days. Denies fever. Recently started wheezing and SOB with exertion History of Present Illness Productive cough and sore throatfor approximately 10 days. had the same problem.Denies fever, chill and fatigue.Recently started wheezing and SOB with exertion. No cp. usesinhaler- helps. Physical Exam Vitals & Measurements T:37.1C HR:60(Monitored) RR:18 BP:139/76 SpO2:94% HT:158cm WT:108.800kg(Dosing) WT:108.8kg BMI:43.58 PHQ2 Data(Data Documented on:06/20/2024 09:58) Emotional health assessment NEGATIVE GENERAL: A&Ox3. No acute distress. Affect and speech appropriate. HEENT: PERRLA, EOMI, Conjunctivae clear. Oropharynx and TM clear. Nose clear. + sinus tenderness. NECK: Supple, No lymphadenopathy. HEART: RRR, normal S1, S2. No murmurs, gallops or clicks. LUNGS: breathing not labored, breathing sound clear, breathing sound equal bilaterally, + rhonchi at theleft lung base, + a fewscattered inspiratorywheezing Assessment/Plan 1.ASTHMA cont albuterol prn 2.Pneumonia acute and new.Rx z-delta and benzonatate 200mg TID prn BTO prn Problem List/Past Medical History Ongoing Allergic rhinitis Anxiety ASTHMA GERD HTN (hypertension) Hyperlipidemia Impaired fasting glycaemia Leukopenia Mood swing Obesity Sleep apnea Weight disorder Resolved Colonoscopy Procedure/Surgical History Polysomnography| Service Date: 12/26/2022SLP STDY UNATTENDED| Service Date: 09/07/2022Mammogram| Service Date: 05/31/2022Femoral neck DEXA scan Z score| Service Date: 08/13/2021olonoscopy| Service Date: 07/07/2021Mammogram - screening| Service Date: 05/21/2021Mammogram - screening| Service Date: 05/19/2020Mammogram - screening| Service Date: 05/14/2019Mammogram - screening| Service Date: 05/01/2017Knee X-ray Left| Service Date: 10/27/2016Mammogram - screening| Service Date: 04/28/2016Cervical cytology finding| Service Date: 04/11/2016Mammogram| Service Date: 04/27/2015Mammogram| Service Date: 04/24/2014iopsy of uterus| Service Date: 05/17/2013Colonoscopy| Service Date: 03/15/2009right ovary removalBreast biopsy sampleLaparoscopyPAP test date Medications amLODIPine(amLODIPine 10 mg oral tablet), 10 mg= 1 tab, PO, Daily, 4 refills azelastine nasal(Astelin 137 mcg/inh nasal spray), 1 spray, each nostril, bid, PRN, 3 refills azithromycin(Zithromax Z-Delta 250 mg oral tablet), See Comments, PO, Daily benzonatate(Tessalon 200 mg oral capsule), 200 mg= 1 cap, PO, tid, PRN budesonide-formoterol(Symbicort) FLUoxetine(FLUoxetine 10 mg oral capsule), 10 mg= 1 cap, PO, Daily, 4 refills lansoprazole(Prevacid 30 mg oral delayed release capsule), 30 mg= 1 cap, PO, Daily, 4 refills loratadine(Claritin 10 mg oral tablet), 10 mg, PO, Daily, 4 refills mometasone nasal(Nasonex 50 mcg/inh nasal spray), 2 spray, intranasal, bid, 3 refills Allergies Augmentinhives Cefzildiarrhea Singulairrash Social History Smoking Status Never smoked cigarettes Alcohol - Low Risk Exercise - Regular exercise Exercise type:Walking - Comments: biking Tobacco - Denies Tobacco Use Family History Asthma: Father and PGM. Diabetes: Mother. Heart failure: Father. Health Status Family Member(s) Immunizations Vaccine Date Status zoster vaccine, inactivated 03/06/2024 Recorded pneumococcal 20-valent conjugate vaccine 02/28/2024 Recorded influenza virus vaccine, inactivated 02/28/2024 Recorded zoster vaccine, inactivated 08/31/2023 Recorded tetanus/diphtheria/pertuss, acel (Tdap) 06/01/2023 Given pneumococcal 20-valent conjugate vaccine 06/01/2023 Given influenza virus vaccine, inactivated 06/01/2023 Given influenza virus vaccine, inactivated 05/18/2022 Given SARS-CoV-2 mRNA (hjcdhgafffj-qrvv-cei) 10/20/2021 Recorded influenza virus vaccine, inactivated 05/17/2021 Given pneumococcal 23-valent vaccine 05/17/2021 Given SARS-CoV-2 (COVID-19) mRNA BNT-162b2 vax 10/22/2020 Recorded Comments : 2021-05-17: Historical information-source unspecified SARS-CoV-2 (COVID-19) mRNA BNT-162b2 vax 10/01/2020 Recorded Comments : 2021-05-17: Historical information-source unspecified influenza virus vaccine, inactivated 03/15/2018 Given influenza virus vaccine, inactivated 03/07/2016 Given pneumococcal 13-valent vaccine 01/09/2015 Given influenza virus vaccine, inactivated 04/30/2013 Recorded influenza virus vaccine, H1N1 03/13/2012 Given pneumococcal 23-valent vaccine 03/13/2012 Given tetanus/diphtheria/pertuss, acel (Tdap) 03/13/2012 Given Recommendations Health Maintenance Pending(in the next year) OverDue Medicare Annual Wellness Visit due05/18/23and every 1year Due Adult COVID-19 Vaccination due06/20/24Unknown Frequency Adult Social Determinants of Health Screening due06/20/24Unknown Frequency Hepatitis C Screening due06/20/24One-time only Due In Future Adult Influenza Vaccine not due until12/10/24and every 1year Breast Cancer Screening not due until06/01/25and every 731day Satisfied(in the past 1 year) Satisfied Adult Influenza Vaccine on02/28/24.Satisfied by SOLO Montano Amber Body Mass Index on06/20/24.Satisfied by SOLO Shipley Kirsten Lipid Screening on03/27/24.Satisfied by Contributor_system, [id number] Shingles Vaccine on08/31/23.Satisfied by EVELIA Collazo, Megha Electronic Signature on File Electronically Reviewed/Signed by: Mehul Ceron MD Author Signature Dt/Tm:06/20/2024 10:53 AM Department of Family Medicine ROBERT Patient Care team information Care Team Personnel Name: KITA Treadwell Tara Position: Nurse Pract - Family Med Member Role: Lifetime Relationship Address: [address] [place] [id number] [place] Name: MD Ceron Juan Position: Physician - Family Med Member Role: Primary Care Provider Address: [address] [place] [address], [place] [address] [place] Care Team Related Persons Name: MANJU FERNANDEZ
[2024-07-17] MEDS: methylPREDNISolone 40 MG in SYRINGE 0 ML IV SCH (06:32)
--- NOTE | 2024-07-17 08:40 | Electrocardiogram Report ---
Test Reason : Blood Pressure : */* mmHG Vent. Rate : 60 BPM Atrial Rate : 60 BPM P-R Int : 170 ms QRS Dur : 84 ms QT Int : 454 ms P-R-T Axes : 14 27 65 degrees QTcB Int : 454 ms Normal sinus rhythm Normal ECG No previous ECGs available Confirmed by Chaz Meadows ([id number]) on 07/17/2024 8:39:55 AM Referred By: Clayton Kemp Confirmed By: Chaz Meadows
[2024-07-17] MEDS ORDERED: FLUTICASONE/VILANTEROL 100/25MCG 14 PUFFS/INHALER INH SCH (09:00)
[2024-07-17] MEDS: PANTOprazole 40 MG TAB PO SCH (09:22)
[2024-07-17] MEDS: FLUoxetine HCL 10 MG CAP PO SCH (09:22)
[2024-07-17] MEDS: FLUTICASONE PROPIONATE NA SPR 16 GM BTL SCH (09:24)
[2024-07-17] MEDS: ACETAMINOPHEN 325 MG TAB PO PRN (09:26)
[2024-07-17] MEDS: OSELTAMIVIR PHOSPHATE 75 MG CAP PO SCH (09:26)
--- NOTE | 2024-07-17 15:51 | Hospitalist Progress Note ---
Date of Service July 17, 2024 Assessment & Plan (1) Moderate persistent asthma: (2) Dyspnea on exertion: (3) Influenza A: Plan Patient is a 69-year-old with PMH notable for asthma, EMILY, obesity who is here with 3 weeks of cough + 4 days of acute worsening. She received abx from her PCP, and reports some improvement. She has been requiring use of her rescue inhaler 4-5x per day whereas she normally never needs it. The past 4 days involved worsening cough, myalgias, headaches, and chest pain a/w cough; no fevers, chills, GI distress. She had some SOB with exertion and contacted her pile operator's office, who advised her to check her pulse ox, and then recommended she present to the ED when the reading was 86%. Patient is being admitted for management of asthma exacerbation in the setting of flu infection. #Asthma/Flu -Influenza A + -CBC w/o leukocytosis, BMP stable -CXR 07/16 - mild pulmonary vascular congestion. subsegmental atelectasis/airspace disease in right lower lobe. -CXR 07/16 - negative for PE. findings consistent w/ bronchitis in lung bases and lingula -Continue Tamiflu x 5 days -s/p 2 doses of IV steroids -continue duonebs q4h -added Perforomist/Pulmicort nebulizers BID 2/5 -continue Mucinex BID -currently on 4L via nasal cannula - titrate down if possible. goal SpO2 > 90% Chronic, stable conditions: HTN: Amlodipine Mental Health: Prozac GERD: Pantoprazole Code: Full Dispo: admit to med/surg DVT prophylaxis: Lovenox Admission and Anticipated Discharge Date Admission Date: July 16, 2024 Subjective Patient seen and examined this afternoon. Family present at bedside. patient reports to be feeling better today. She reports her cough and SOB is slowly improving. She states at baseline she is on room air but there was a period of time she was using 2L w/ her CPAP but had recently been able to stop that. She admits to body aches and muscle fatigue. She denies CP, abdominal pain, nausea, vomiting, or diarrhea Physical Exam Constitutional: WD/WN, vitals as above Eyes: PERRL, conjunctivae normal, anicteric sclerae Respiratory: normal respiratory effort, lungs clear to auscultation Cardiovascular: RRR, no murmur, no edema Psychiatric: A+Ox3, euthymic affect Results & Data Results & Data Vital Signs (Past 12 Hours) Vital Signs Temp Pulse Pulse Pulse Resp BP Pulse Ox 07/17/24 15:42 73 18 95 07/17/24 15:22 07/17/24 15:09 36.7 C 75 75 150/71 H 95 07/17/24 14:02 76 76 20 94 07/17/24 13:58 75 75 20 140/72 94 07/17/24 11:00 07/17/24 10:38 69 15 94 07/17/24 10:05 75 20 179/83 H 90 07/17/24 09:21 75 75 20 145/71 H 92 07/17/24 07:17 80 07/17/24 07:10 87 17 94 07/17/24 06:45 65 21 176/78 H 94 O2 Del Method O2 Flow Rate 07/17/24 15:42 Nasal Cannula 4 07/17/24 15:22 Nasal Cannula 4 07/17/24 15:09 Nasal Cannula 4 07/17/24 14:02 Nasal Cannula 4 07/17/24 13:58 Nasal Cannula 07/17/24 11:00 Nasal Cannula 4 07/17/24 10:38 Nasal Cannula 3 07/17/24 10:05 Nasal Cannula 2 07/17/24 09:21 Nasal Cannula 2 07/17/24 07:17 07/17/24 07:10 Nasal Cannula 3 07/17/24 06:45 Nasal Cannula 2 PG Care Time/CCT Total # of Minutes Spent Total Time Spent with Patient: Total time spent is greater than 50% in coordination of care (as documented) at patient's floor/unit and/or counseling patient: Coding Level of Care Code 64030 SUB INP/OBS CARE 2/35MIN Diagnoses Moderate persistent asthma J45.40 Dyspnea on exertion R06.09 Influenza A J10.1
[2024-07-17] MEDS: FORMOTEROL 20 MCG/2 ML VIAL NEB SCH (20:16)
[2024-07-17] MEDS: BUDESONIDE 0.5 MG/2 ML VIAL (PULMICORT) NEB SCH (20:16)
[2024-07-17] MEDS: ENOXAPARIN INJ 40 MG/0.4 ML SYR SQ SCH (21:30)
[2024-07-18 09:01] LABS: Hematocrit (blood only) 41.2 % (37.0-47.0); Hemoglobin 13.6 g/dl (12.0-16.0); Mean Corpuscular Hemoglobin 28.5 pg (25.0-34.0); Mean Corpuscular Volume 86.4 fL (80.0-100.0); Mean Platelet Volume 10.7 fL (9.4-12.4); Platelet Count 195 K/uL (130-400); RDW Coefficient of Variation 13.3 % (11.5-14.5); RDW Standard Deviation 42.3 fL (36.4-46.3); Red Blood Count 4.77 M/uL (4.20-5.40); White Blood Count 4.08 K/ul (4.8-10.8)
[2024-07-18 10:05] LABS: Calcium 9.1 mg/dl (8.6-10.3); Potassium 3.8 mmol/L (3.5-5.1)
--- NOTE | 2024-07-18 15:24 | Hospitalist Progress Note ---
Date of Service July 18, 2024 Assessment & Plan (1) Moderate persistent asthma: (2) Dyspnea on exertion: (3) Influenza A: Plan Patient is a 69-year-old with PMH notable for asthma, EMILY, obesity who is here with 3 weeks of cough + 4 days of acute worsening. She received abx from her PCP, and reports some improvement. She has been requiring use of her rescue inhaler 4-5x per day whereas she normally never needs it. The past 4 days involved worsening cough, myalgias, headaches, and chest pain a/w cough; no fevers, chills, GI distress. She had some SOB with exertion and contacted her sledger's office, who advised her to check her pulse ox, and then recommended she present to the ED when the reading was 86%. Patient is being admitted for management of asthma exacerbation in the setting of flu infection. (Possible, Suspected, Likely) Acute bronchitis due to influenza A causing asthma exacerbation #Asthma/Flu -Influenza A + -CBC w/o leukocytosis, BMP stable 07/18 -CXR 07/16 - mild pulmonary vascular congestion. subsegmental atelectasis/airspace disease in right lower lobe. -CXR 07/16 - negative for PE. findings consistent w/ bronchitis in lung bases and lingula -Continue Tamiflu x 5 days -s/p 2 doses of IV steroids -continue duonebs q4h -added Perforomist/Pulmicort nebulizers BID 2/5 -continue Mucinex BID -currently on 2L via nasal cannula - titrate down if possible. goal SpO2 > 90% Chronic, stable conditions: HTN: Amlodipine Mental Health: Prozac GERD: Pantoprazole Code: Full DVT prophylaxis: Lovenox Admission and Anticipated Discharge Date Admission Date: July 16, 2024 Subjective Patient seen and examined this morning. Patient reports an increase in cough today. She reports no shortness of breath. She reports her muscle aches have resolved. She denies any chest pain, abdominal pain, nausea, or vomiting. Physical Exam Constitutional: WD/WN, vitals as above Eyes: PERRL, conjunctivae normal, anicteric sclerae Respiratory: +wheezing in upper lung spann Cardiovascular: RRR, no murmur, no edema Psychiatric: A+Ox3, euthymic affect Results & Data Results & Data Vital Signs (Past 12 Hours) Vital Signs Temp Pulse Resp BP Pulse Ox O2 Del Method O2 Flow Rate 07/18/24 10:57 64 18 94 Nasal Cannula 2 07/18/24 08:14 61 14 96 Nasal Cannula 2 07/18/24 08:14 Nasal Cannula 2 07/18/24 07:47 54 L 18 96 Nasal Cannula 2 07/18/24 05:29 36.9 C 61 16 164/84 H CPAP 4 PG Care Time/CCT Total # of Minutes Spent Total Time Spent with Patient: Total time spent is greater than 50% in coordination of care (as documented) at patient's floor/unit and/or counseling patient: Coding Level of Care Code 66254 SUB INP/OBS CARE 2/35MIN Diagnoses Moderate persistent asthma J45.40 Dyspnea on exertion R06.09 Influenza A J10.1
[2024-07-18] MEDS: COUGH DROP (SUGAR FREE) LOZ 24 LOZ/1 BOX BUCCAL STA (21:18)
[2024-07-19 09:51] LABS: Hematocrit (blood only) 38.5 % (37.0-47.0); Hemoglobin 12.6 g/dl (12.0-16.0); Mean Corpuscular Hemoglobin 28.3 pg (25.0-34.0); Mean Corpuscular Hgb Conc 32.7 g/dL (32.0-36.0); Mean Corpuscular Volume 86.5 fL (80.0-100.0); Mean Platelet Volume 10.6 fL (9.4-12.4); Platelet Count 184 K/uL (130-400); RDW Coefficient of Variation 13.4 % (11.5-14.5); RDW Standard Deviation 42.4 fL (36.4-46.3); Red Blood Count 4.45 M/uL (4.20-5.40); White Blood Count 5.37 K/ul (4.8-10.8)
[2024-07-19 10:13] LABS: Creatinine Clr Calc Pharmacy 74.1 ml/min; Potassium 3.7 mmol/L (3.5-5.1)
--- NOTE | 2024-07-19 15:38 | Hospitalist Progress Note ---
Date of Service July 19, 2024 Assessment & Plan (1) Moderate persistent asthma: (2) Dyspnea on exertion: (3) Influenza A: Plan Patient is a 69-year-old with PMH notable for asthma, EMILY, obesity who is here with 3 weeks of cough + 4 days of acute worsening. She received abx from her PCP, and reports some improvement. She has been requiring use of her rescue inhaler 4-5x per day whereas she normally never needs it. The past 4 days involved worsening cough, myalgias, headaches, and chest pain a/w cough; no fevers, chills, GI distress. She had some SOB with exertion and contacted her grinder machine setter's office, who advised her to check her pulse ox, and then recommended she present to the ED when the reading was 86%. Patient is being admitted for management of asthma exacerbation in the setting of flu infection. (Possible, Suspected, Likely) Acute bronchitis due to influenza A causing asthma exacerbation #Asthma/Flu -Influenza A + -CBC w/o leukocytosis, BMP stable 07/19 -CXR 07/16 - mild pulmonary vascular congestion. subsegmental atelectasis/airspace disease in right lower lobe. -CXR 07/16 - negative for PE. findings consistent w/ bronchitis in lung bases and lingula -Continue Tamiflu x 5 days - through 07/22. -s/p 2 doses of IV steroids -continue duonebs q4h -added Perforomist/Pulmicort nebulizers BID 5 -continue Mucinex BID -weaned to room air at rest. 2 step completed 07/19 and patient requires 2L of oxygen w/ ambulation. Script signed w/ CM. Chronic, stable conditions: HTN: Amlodipine Mental Health: Prozac GERD: Pantoprazole Code: Full DVT prophylaxis: Lovenox Anticipate discharge home 07/20. Admission and Anticipated Discharge Date Admission Date: July 16, 2024 Subjective Patient seen and examined this morning. Patient reports to be feeling similar to yesterday. She still reports a cough. She denies SOB and was weaned to room air. She had a 2 step completed and does require 2L of oxygen on ambulation upon discharge. Patient denied chest pain. Physical Exam Constitutional: WD/WN, vitals as above Eyes: PERRL, conjunctivae normal, anicteric sclerae Respiratory: normal respiratory effort, lungs clear to auscultation Cardiovascular: RRR, no murmur, no edema Psychiatric: A+Ox3, euthymic affect Results & Data Results & Data Vital Signs (Past 12 Hours) Vital Signs Temp Pulse Pulse Pulse Pulse Pulse Resp 07/19/24 14:57 77 18 07/19/24 14:47 36.7 C 67 16 07/19/24 11:23 85 84 71 88 07/19/24 11:02 75 18 07/19/24 07:30 07/19/24 07:15 79 18 07/19/24 07:11 36.7 C 76 17 Resp Resp Resp Resp BP Pulse Ox Pulse Ox 07/19/24 14:57 93 07/19/24 14:47 130/78 95 07/19/24 11:23 20 20 16 16 95 07/19/24 11:02 90 07/19/24 07:30 07/19/24 07:15 94 07/19/24 07:11 157/78 H 96 Pulse Ox Pulse Ox Pulse Ox O2 Del Method O2 Flow Rate O2 Flow Rate 07/19/24 14:57 Room Air 07/19/24 14:47 Room Air 07/19/24 11:23 85 L 96 96 2 07/19/24 11:02 Room Air 07/19/24 07:30 Nasal Cannula 2 07/19/24 07:15 Nasal Cannula 2 07/19/24 07:11 Nasal Cannula 3 PG Care Time/CCT Total # of Minutes Spent Total Time Spent with Patient: Total time spent is greater than 50% in coordination of care (as documented) at patient's floor/unit and/or counseling patient: Coding Level of Care Code 30904 SUB INP/OBS CARE 2/35MIN Diagnoses Moderate persistent asthma J45.40 Dyspnea on exertion R06.09 Influenza A J10.1
[2024-07-20 07:05] VITALS: TEMP 97.7
[2024-07-20 08:07] VITALS: BP 131/69
[2024-07-20 11:30] VITALS: PULSE 67; RESP 16; O2SAT 93
--- NOTE | 2024-07-21 13:53 | Discharge Summary ---
Discharge Summary Date of Service July 20, 2024 Principal Dx & Hospital Course #1 = Principal Diagnosis (1) Moderate persistent asthma: (2) Dyspnea on exertion: (3) Influenza A: Plan Patient is a 69-year-old with PMH notable for asthma, EMILY, obesity who is here with 3 weeks of cough + 4 days of acute worsening. She received abx from her PCP, and reports some improvement. She has been requiring use of her rescue inhaler 4-5x per day whereas she normally never needs it. The past 4 days involved worsening cough, myalgias, headaches, and chest pain a/w cough; no fevers, chills, GI distress. She had some SOB with exertion and contacted her admitting manager's office, who advised her to check her pulse ox, and then recommended she present to the ED when the reading was 86%. Patient is being admitted for management of asthma exacerbation in the setting of flu infection. (Possible, Suspected, Likely) Acute bronchitis due to influenza A causing asthma exacerbation #Asthma/Flu -Influenza A + -CBC w/o leukocytosis, BMP stable 07/19 -CXR 07/16 - mild pulmonary vascular congestion. subsegmental atelectasis/airspace disease in right lower lobe. -CXR 07/16 - negative for PE. findings consistent w/ bronchitis in lung bases and lingula -Continue Tamiflu x 5 days - through 07/22. -s/p 2 doses of IV steroids -continue duonebs q4h -added Perforomist/Pulmicort nebulizers BID /5 -continue Mucinex BID -weaned to room air at rest. 2 step completed 07/19 and patient requires 2L of oxygen w/ ambulation. Script signed w/ CM. Chronic, stable conditions: HTN: Amlodipine Mental Health: Prozac GERD: Pantoprazole Code: Full DVT prophylaxis: Lovenox Anticipate discharge home 07/20. Admission HPI Per Admitting Provider Patient with h/o asthma has had a cough for ~3 weeks with recent worsening. Reports that she did see her primary doctor within that time and was given a Z- pac and Tessalon Perles. She feels that only the former helped. She had no recent travel. Her only sick contact would be her , who had a mild cough since early May. For the past approx 4 days (since ), she noticed the cough was "deeper." Minimal sputum produced, always clear. She started needing her rescue inhaler 4- 5 times a day vs typically never using it. She also started to have myalgias, generalized weakness, ROUSE, dizziness w/o syncope or fall, and mild chest pain/soreness with excessive coughing. No fevers, chills, rhinorrhea, sinus congestion, ear pain, sore throat. No significant abd pain, nausea, vomiting, or diarrhea reported. In the ED, she was given albuterol, 60mg solu-medrol, and 1 dose of tamiflu. She was requiring supplemental O2, down to 2L by admission. Discharge Plan Discharge Items Patient Disposition: Home - Self-Care Reason For Visit: [facility] Discharge Diagnosis: flu Activity: Resume your previous activity Non-emergency contact: Primary Care Provider Call non-emergency contact if: you have any medication questions Follow-up/Referrals: Mehul Ceron MD [Primary Care Provider] - Diet: Regular Addtl Attending Provider Instructions: Recommend followup with PCP in 1-2 weeks. Please start tamiflu tonight. You require 2 liters of oxygen on ambulation Basic information on reducing risk of spreading flu: People with the flu can spread it to others from about one day before they feel sick until up to five to seven days after they start showing symptoms. When someone with the flu coughs, sneezes, talks, or laughs, droplets containing the flu virus are released into the air. The droplets can land on surfaces and people up to six feet away. People also get the flu by touching a surface or object that has the flu virus on it and then touching your eyes, nose, or mouth. Pending Studies at Discharge: No Stand-Alone Forms: My [facility], Smoking Cessation Medications and DC Order Prescriptions: New oseltamivir [Tamiflu] 75 mg Capsule 75 mg PO BID Qty: 5 0RF Rx Instructions: First dose tonight last dose on 07/22 guaifenesin [Mucinex] 600 mg Tablet Extended Release 12hr 600 mg PO Q12 Qty: 14 0RF Continued budesonide-formoterol [Symbicort] 160-4.5 mcg/actuation HFA aerosol inhaler 2 puff inhalation BID Qty: 10.2 11RF loratadine [Claritin] 10 mg tablet 10 mg PO DAILY PRN (Reason: Allergic Symptoms) lansoprazole [Prevacid] 30 mg capsule,delayed release(DR/EC) 30 mg PO DAILY fluoxetine 10 mg capsule 10 mg PO DAILY amlodipine 10 mg PO HS azelastine 137 mcg (0.1 %) spray,non-aerosol 2 spray intranasal BID PRN (Reason: nasal congestion) Qty: 30 11RF Rx Instructions: administer into each nostril albuterol sulfate [Ventolin HFA] 90 mcg/actuation HFA aerosol inhaler 2 puff inhalation Q4H PRN (Reason: shortness of breath or wheezing) Qty: 8.5 11RF mometasone 50 mcg/actuation spray,non-aerosol 2 spray intranasal DAILY Qty: 17 11RF Rx Instructions: administer into each nostril Discharge Orders: Discharge Order (Routine); Ordered 07/20/24 Ordered By: Rogelio Gaines/Other Patient Handouts: ED Influenza (Adult) Admission Data Admit Date/Time: 07/16/24 20:38 Attending Provider: Rogelio Paredes Admit Provider: Louis Ross Primary Care Provider: Mehul Ceron Other Providers: Rosalia Flynn Other Interventions: Discharge Summary Assessment (RN) Last Done: 07/20/24 11:07 Hospital Stay Data Consultations 07/16/24 22:51 ED Decision to Admit Stat Diagnostic Imagining Performed 07/16/24 17:59 CT angio chest PE protocol Stat Pending Results Patient Have Any Pending Studies at Discharge: No Discharge Instructions Given to Patient (Per Discharging Provider) Recommend followup with PCP in 1-2 weeks. Please start tamiflu tonight. You require 2 liters of oxygen on ambulation Basic information on reducing risk of spreading flu: People with the flu can spread it to others from about one day before they feel sick until up to five to seven days after they start showing symptoms. When someone with the flu coughs, sneezes, talks, or laughs, droplets containing the flu virus are released into the air. The droplets can land on surfaces and people up to six feet away. People also get the flu by touching a surface or object that has the flu virus on it and then touching your eyes, nose, or mouth. Coding Diagnoses Moderate persistent asthma J45.40 Dyspnea on exertion R06.09 Influenza A J10.1
== END 2024-07-20 13:48 | disposition home or self-care (01) | DRG 202 ==
LOC: ED 16:41 → EDINP 20:38 → SUATTDRO 20:38 → 3W 22:45